=== PATIENT | female | born 1965 | race Caucasian/White ===

== ENCOUNTER → 2016-11-12 | Outpatient (CLI) | payer OTHER ==
[~2016-11-12] VITALS: Ht 165.1 cm; Wt 63.5 kg
[~2016-11-12] MED LIST: BIOTIN2500 MCG PO; CALCIUM + D3 E1 EACH PO; CLARITIN,ALAVAR10 MG PO; PRILOSEC40 MG PO; SINGULAIR10 MG PO; TUMS500 MG PO; TYLENOL EXTRA500 MG PO; ZANTAC150 MG PO
== END | disposition home or self-care (01) ==
LOC: AMB 08:24
PROC: 0DB68ZX Excision of Stomach, Via Natural or Artificial Opening Endoscopic, Diagnostic (ICD-10-PCS; principal; 2016-11-12)
DX: K21.0 Gastro-esophageal reflux disease with esophagitis (principal); Z82.5 Family history of asthma and other chronic lower respiratory diseases; Z80.0 Family history of malignant neoplasm of digestive organs; Z88.0 Allergy status to penicillin
CPT/HCPCS: 88305; 88342 TC; J2250; J3010